=== PATIENT | male | born 1955 | race African-American/Black ===

== ENCOUNTER 2018-01-14 15:00 | Outpatient (RCR) | payer SELFPAY ==
--- NOTE | 2017-12-23 15:12 | HP.PTEVAL ---
Patient's Visit Information MARILYN MCKEON is a 62 year old M referred to Physical Therapy by GEORGE CONCEPCION with a diagnosis of R rot cuff tear. Date of Evaluation: 12/23/17 Physical Therapist: Pradeep Sullivan PT, - Visit Plan Frequency: 1x/Week Duration: 3 Weeks Plan: R shoulder strengthening (rot cuff), scap stab ex's, UBE, and HEP - Subjective Subjective: Pt reports he injured his R shoulder 2 weeks ago. Pt reports his friend slipped on wet stairs at that time, almost taking him down as well. Pt reports he reachid on to the railing of the steps and twisted a little to avoid falling. Pt reports this resulted in R shoulder pain. Pt notes after he attempted to lift his friend up, he felt a sharp pain in the R shoulder. No PMHx. Pt had a recent MRI which revealed torn supraspinatus and labrum in R shoulder. No T or N at this time in R UE. Sleep difficulty secondary to pain. Pt must sleep in a recliner. Pt works as an service electrician. Pt reports his goals are to avoid surgery at this time. 1/10 at rest, 8/10 at worst (sleeping). Pt is R ;hand dominant. - Pain R shoulder Pain Intensity (Out of 10): 1 Pain Intensity Range: 8 - Objective Neuro: B UE sensation is WNL to light touch. B bicepital reflex= 2/3. Palpation: Minor pain on the lateral aspect of R shoulder. No obvious deformity. ROM: L shoulder flex= 165, abd= 165, ER= 55, IR WNL: R shoulder flex= 52, abd= 52, ER= 40, IR WNL. MMT: R shoulder 2/5 throughout. L shoulder 5/5 throughout - Goals Goal 1:: Decrease R shoulder pain x 50% to aid with sleep Goal Time Frame: 4-6 Weeks Goal 2:: Increase R shoulder abd and flex ROM x 40 degrees to aid with overhead activity Goal Time Frame: 4-6 Weeks Goal 3:: Increase R shoulder strength x 1 grade to aid with RTW Goal Time Frame: 4-6 Weeks Goal 4:: I with HEP Goal Time Frame: 4-6 Weeks - Rehabilitation Potential Physical Therapy Diagnosis: R shoulder pain, weakness, and limited ROM secondary to R rot cuff tear Rehabilitation Potential: Good - Anticipated Interventions Patient/Client Instruction: Educate patient on: Condition, Plan of Care For the Purpose of:: To improve self management Therapeutic Exercise to Include: Strength training, Endurance training, Postural training, Active ROM, Scapular Strength/Stabilization For the Purpose of:: To decrease pain, To increase ROM, To improve ability to perform ADL's Cryotherapy (ice pack, ice massage): Yes For the Purpose of:: To decrease pain Thank you for the opportunity to evaluate your patient. For Medicare and Medicare HMO plans, please review the plan of care and approve it. It will need to be FAXED BACK to us at [phone] for Medicare purposes. Please let me know if there are questions or concerns regarding this plan of care. Physician Signature: Date:
--- NOTE | 2018-04-01 07:30 | HP.PT.NRP ---
HP - Discharge Summary (1) - Patient Information MARILYN MCKEON was seen in my office for initial evaluation on 12/23/17. The following Plan of Care was established for this patient: Initial Frequency: 1x/Week Initial Duration: 3 Weeks - Anticipated Interventions Patient/Client Instruction: Educate patient on: Condition, Plan of Care For the Purpose of:: To improve self management Therapeutic Exercise to Include: Strength training, Endurance training, Postural training, Active ROM, Scapular Strength/Stabilization For the Purpose of:: To decrease pain, To increase ROM, To improve ability to perform ADL's Cryotherapy (ice pack, ice massage): Yes For the Purpose of:: To decrease pain This patient was last seen in our office . Pertinent comments regarding their Physical therapy will appear below: Pt was treated for 4 PT visits for his R rot cuff tear through the date of 01/14/18. Pt has not returned since that date, and is therefore discontinued at this time. At this point I will be discontinuing this patient from physical therapy. I would be happy to see this patient again in the future if found appropriate by the physician. Thank you! Pradeep Sullivan, PT, ATC
== END 2018-01-14 19:00 | disposition home or self-care (01) ==
LOC: PT 15:00
PROVIDERS: Family Provider Family Medicine; PCP Family Medicine
DX: M75.100 Unspecified rotator cuff tear or rupture of unspecified shoulder, not specified as traumatic (principal)
CPT/HCPCS: 97110; 97162

== ENCOUNTER → 2018-08-14 | Outpatient (CLI) | payer SELFPAY ==
[2018-08-14 18:03] LABS: Cholesterol 169 mg/dL (200); Glucose 70 mg/dL (74-106); High Density Lipoprotein 57 mg/dL; PSA,Total - Annual Screen 0.51 ng/mL (0.00-4.00); Triglycerides 90 mg/dL; Very Low Density Lipoprotein 18 mg/dL (5-40)
== END | disposition home or self-care (01) ==
PROVIDERS: Family Provider Family Medicine; PCP Family Medicine; Referring Provider Family Medicine; Visit Provider Family Medicine
DX: J45.909 Unspecified asthma, uncomplicated (principal); Z13.220 Encounter for screening for lipoid disorders; Z12.5 Encounter for screening for malignant neoplasm of prostate
CPT/HCPCS: 36415; 80061; 82947; 84153; G0103

== ENCOUNTER 2018-08-19 07:32 | Outpatient (RCR) | payer SELFPAY ==
--- NOTE | 2018-08-19 09:34 | HP.PTEVAL_ITS ---
Patient's Visit Information MARILYN MCKEON is a 63 year old M referred to Physical Therapy by Self Referred with a diagnosis of R shoulder pain. Date of Evaluation: 08/19/18 Physical Therapist: Pradeep Sullivan PT, ATC - Visit Plan Frequency: 1x/Week Duration: 2 Weeks Plan: Recheck or Discharge in 3 weeks - Subjective Findings: Pt reports his R shoulder has been sore for 6 mos. Pt reports he was walking down a flight of stairs when his feet slipped and he held on to the railing with his R UE. Pt reports he has had pain ever since this occurred. Pt reports he has had x rays and an MRI which revealed he has a torn rot ator cuff and needs surgery, but he notes he cant afford it at this time. Pt is R hand dominant. Pt reports he is still working at this time, but has significant pain with any overhead acitivty he has to perform. No sleep difficulty at this time. No tingling or numbness at this time. 0/10 pain at rest, 5/10 pain at worst. - Pain R shoulder Pain Intensity (Out of 10): 0 Pain Intensity Range: 5 - Objective Neuro: B UE sensation is WNL to light touch. B bicepital reflex= 2/3. Palpati on: No sig pain with paalpation this date. No obvious deformity. ROM: L shoulder flex= 165, abd= 165, ER= 40, IR WNL; R shoulder flex= 120, abd= 100, ER= 20, IR= moderately limited. MMT: R shoulder is grossly 3/5 throughout. L shoulder 5/5. Special testing: positive empty can - Goals Goal 1:: I with HEP in 1-2 visits Goal Time Frame: 1 Week - Rehabilitation Potential Physical Therapy Diagnosis: R shoulder pain, weakness, nd limited ROM secondary to possible rotator cuff tear Rehabilitation Potential: Fair - Anticipated Interventions Patient/Client Instruction: Educate patient on: Condition, Plan of Care For the Purpose of:: To improve self management Therapeutic Exercise to Include: Strength training, Endurance training, Active ROM, Scapular Strength/Stabilization For the Purpose of:: To decrease pain, To increase ROM, To improve muscle performance and motor function Cryotherapy (ice pack, ice massage): Yes For the Purpose of:: To decrease pain Thank you for the opportunity to evaluate your patient. For Medicare and Medicare HMO plans, please review the plan of care and approve it. It will need to be FAXED BACK to us at [phone] for Medicare purposes. For Medicare only, by signing this I certify the plan of care. Please let me know if there are questions or concerns regarding this plan of care. Physician Signature: Date:
--- NOTE | 2018-12-04 12:51 | HP.PT.NRP ---
HP - Discharge Summary (1) - Patient Information MARILYN CMKEON was seen in my office for initial evaluation on 08/19/18. The following Plan of Care was established for this patient: Initial Frequency: 1x/Week Initial Duration: 2 Weeks - Anticipated Interventions Patient/Client Instruction: Educate patient on: Condition, Plan of Care For the Purpose of:: To improve self management Therapeutic Exercise to Include: Strength training, Endurance training, Active ROM, Scapular Strength/Stabilization For the Purpose of:: To decrease pain, To increase ROM, To improve muscle performance and motor function Cryotherapy (ice pack, ice massage): Yes For the Purpose of:: To decrease pain This patient was last seen in our office . Pertinent comments regarding their Physical therapy will appear below: Pt was evaluated for R shoulder pain on the date of 08/19/18 and issued a HEP at that time. Pt has not returned through todays date and is therefore discontinued at this time. At this point I will be discontinuing this patient from physical therapy. I would be happy to see this patient again in the future if found appropriate by the physician. Thank you! Pradeep Sullivan, PT, ATC
== END 2018-08-19 19:00 | disposition home or self-care (01) ==
LOC: PT 07:32
PROVIDERS: Family Provider Family Medicine; PCP Family Medicine
DX: R69 Illness, unspecified (principal)
CPT/HCPCS: 97161